=== PATIENT | female | born 1950 | race Hispanic/Latino ===

== ENCOUNTER 2024-04-11 03:50 | Inpatient (IN) | payer MEDICARE ==
[2024-04-11] VITALS (7 sets, daily range): BP systolic 98–112; BP diastolic 54–64; PULSE 77–89; RESP 14–18; TEMP 97.6–98.2; O2SAT 96–100
[~2024-04-11] VITALS: Ht 162.6 cm; Wt 90.7 kg
[~2024-04-11 03:50] MED LIST: AUGMENTIN 500-1 EACH PO; HYDROCET 5-5001 EACH; IPRATROPIU0.2 MG/1 M INH; LISINOPRIL-HCT1 EAC2; PREVACHOL PO; PROPANOLOL; SINGULAIR10 MG PO; TOPROL XL100 MG PO; TRAZADONE; TRAZODONE HCL100 MG PO; XYZAL5 MG; Z.0.XANAX0.5 MG; Z.1.LISINOPRIL-HCT1
[2024-04-11] MEDS: Morphine 4mg INJECTION 4 MG/ML INJ IV ONE ×2 (04:26→07:49)
[2024-04-11] MEDS: SODIUM CHLORIDE 0.9% 1000ML 1,000 ML IV ONE (04:26)
[2024-04-11] MEDS: ONDANSETRON HCL INJ 2MG/ML 2ML 2 MG/ML VIAL IV STA (04:26)
[2024-04-11 04:45] LABS: BASOPHILS % 0.1 % (0.0-1.0); HEMATOCRIT 42.9 % (34.2-44.1); HEMOGLOBIN 13.9 g/dL (12.0-16.0); LYMPHOCYTES # (AUTO) 2.2 (1.0-3.2); LYMPHOCYTES % 15.1 % (18.0-39.1); MEAN CORPUSCULAR HEMOGLOBIN 30.2 pg (28-32); MEAN CORPUSCULAR HGB CONC 32.4 g/dL (31-35); MEAN CORPUSCULAR VOLUME 93.3 fL (81-99); MONOCYTES % 6.8 % (4.4-11.3); NEUTROPHILS # (AUTO) 11.2 (2.1-6.9); NEUTROPHILS % 77.7 % (38.7-80.0); PLATELET COUNT 231 x10e3/uL (140-360); RED CELL DISTRIBUTION WIDTH 12.9 % (11.7-14.4)
[2024-04-11 05:00] LABS: ALBUMIN 3.8 g/dL (3.5-5.0); ALBUMIN/GLOBULIN RATIO 1.2 (0.8-2.0); BILIRUBIN,TOTAL 0.7 mg/dL (0.2-1.2); CALCIUM 10.2 mg/dL (8.4-10.2); CREATININE, SERUM 1.25 mg/dL (0.57-1.11); TOTAL PROTEIN 6.9 g/dL (6.5-8.1)
[2024-04-11] MEDS ORDERED: IOPAMIDOL 370 MG/ML 100 ML INFUS..BTL INJ ONE (05:17)
[2024-04-11] MEDS ORDERED: Morphine 4mg INJECTION 4 MG/ML INJ IV PRN (06:45)
[2024-04-11 06:49] LABS: INR 0.97; PROTHROMBIN TIME 13.4 seconds (11.9-14.5)
[2024-04-11 06:50] LABS: PARTIAL THROMBOPLASTIN TIME 30.6 seconds (23.8-35.5)
[2024-04-11] MEDS: SODIUM CHLORIDE 0.9% 1000ML 1,000 ML IV SCH (07:00)
[2024-04-11] MEDS: METRONIDAZOLE 500MG/NS 100ML 100 ML IV SCH (07:49)
[2024-04-11] MEDS ORDERED: FENTANYL CITRATE/PF 100MCG/2 ML INJ ONE (12:06)
[2024-04-11] MEDS ORDERED: TRAZODONE HCL 50 MG TAB PO PRN (12:45)
[2024-04-11] MEDS ORDERED: BENZONATATE 100 MG CAP PO PRN (12:45)
[2024-04-11] MEDS ORDERED: BUPIVACAINE 0.25% 30ML SDV ONE (13:13)
[2024-04-11] MEDS ORDERED: LIDOCAINE HCL 2% LOCAL INJ 5 ML SDV VIAL INJ ONE (13:52)
[2024-04-11] MEDS ORDERED: ACETAMINOPHEN 1000 MG/100 ML IV ONE (13:52)
[2024-04-11] MEDS ORDERED: ROCURONIUM BROMIDE 10 MG/ML 5ML VIAL IV ONE (13:52)
[2024-04-11] MEDS ORDERED: DEXAMETHASONE SOD PHOS INJ 4 MG/ML SDV ONE (13:52)
[2024-04-11] MEDS ORDERED: SEVOFLURANE INHAL SOLN 250 ML PEN BTL ONE (13:52)
[2024-04-11] MEDS ORDERED: ONDANSETRON HCL INJ 2MG/ML 2ML 2 MG/ML VIAL ONE (13:52)
[2024-04-11] MEDS ORDERED: PROPOFOL IV EMULSION 10 MG/ML 20 ML VIAL ONE (13:52)
[2024-04-11] MEDS ORDERED: SUGAMMADEX SODIUM 200 MG/2 ML VIAL IV ONE (13:52)
[2024-04-11] MEDS ORDERED: SUCCINYLCHOLINE CHLORIDE 20 MG/ML 10ML VIAL ONE (13:52)
[2024-04-11] MEDS ORDERED: ONDANSETRON HCL INJ 2MG/ML 2ML 2 MG/ML VIAL IV PRN (14:45)
[2024-04-11] MEDS: ALBUTEROL/IPRATROPIUM 3 ML NEB ONE (18:44)
[2024-04-11] MEDS: ALBUTEROL/IPRATROPIUM 3 ML NEB NEB PRN (19:43)
[2024-04-11] MEDS: BUDESONIDE 0.5MG/2 ML NEB INH SCH (19:43)
[2024-04-11] MEDS ORDERED: PNEUMOCOCCAL VACCINE POLYVALENT 23 MCG/0.5 ML VIAL IM SCH (19:55)
[2024-04-11] MEDS: METOPROLOL SUCCINATE 25 MG TAB XL PO SCH (20:39)
[2024-04-11] MEDS: ACETAMINOPHEN 1000 MG/100 ML IV PRN (22:35)
[2024-04-12] VITALS (11 sets, daily range): BP systolic 103–130; BP diastolic 54–75; PULSE 71–93; RESP 16–20; TEMP 97.9–98.6; O2SAT 95–100
[2024-04-12] MEDS: HYDROMORPHONE 1MG/1ML INJ IV PRN (03:13)
[2024-04-12] MEDS: ONDANSETRON HCL INJ 2MG/ML 2ML 2 MG/ML VIAL IV PRN (03:34)
[2024-04-12 05:29] LABS: BASOPHILS % 0.2 % (0.0-1.0); HEMATOCRIT 36.8 % (34.2-44.1); HEMOGLOBIN 11.7 g/dL (12.0-16.0); LYMPHOCYTES % 5.4 % (18.0-39.1); MEAN CORPUSCULAR HEMOGLOBIN 30.3 pg (28-32); MEAN CORPUSCULAR HGB CONC 31.8 g/dL (31-35); MEAN CORPUSCULAR VOLUME 95.3 fL (81-99); MONOCYTES # (AUTO) 0.8 (0.2-0.8); NEUTROPHILS # (AUTO) 16.6 (2.1-6.9); NEUTROPHILS % 89.8 % (38.7-80.0); PLATELET COUNT 195 x10e3/uL (140-360); RED BLOOD COUNT 3.86 x10e6/uL (3.6-5.1); RED CELL DISTRIBUTION WIDTH 13.5 % (11.7-14.4); WHITE BLOOD COUNT 18.56 x10e3/uL (4.8-10.8)
[2024-04-12 05:57] LABS: ALBUMIN/GLOBULIN RATIO 1.1 (0.8-2.0); ANION GAP 11.6 mmol/L (8-16); BILIRUBIN,TOTAL 0.8 mg/dL (0.2-1.2); CALCIUM 8.6 mg/dL (8.4-10.2); CREATININE, SERUM 1.09 mg/dL (0.57-1.11); POTASSIUM 3.6 mmol/L (3.5-5.1); TOTAL PROTEIN 5.8 g/dL (6.5-8.1)
[2024-04-12] MEDS ORDERED: METOPROLOL SUCC50 MG PO (08:20)
[2024-04-12] MEDS ORDERED: LISINOPRIL10 MG PO (08:20)
[2024-04-12] MEDS ORDERED: PRAVASTATIN SOD40 MG PO (08:20)
[2024-04-12] MEDS ORDERED: Morphine 2mg Syringe 2 MG/ML SYR IV PRN (14:30)
[2024-04-12] MEDS: ALBUTEROL/IPRATROPIUM 3 ML NEB NEB SCH (16:03)
[2024-04-12] MEDS: HYDROCODONE/APAP 7.5MG-325MG 1 EA TAB PO PRN (17:54)
[2024-04-12] MEDS: METOPROLOL SUCCINATE 25 MG TAB XL PO SCH (20:43)
[2024-04-12] MEDS: DOCUSATE SODIUM 100 MG CAP PO PRN (21:26)
[2024-04-13] VITALS (11 sets, daily range): BP systolic 102–125; BP diastolic 49–88; PULSE 72–93; RESP 16–21; TEMP 97.5–99.2; O2SAT 92–100
[2024-04-13 06:06] LABS: ANION GAP 10.9 mmol/L (8-16); CALCIUM 8.5 mg/dL (8.4-10.2); CREATININE, SERUM 1.01 mg/dL (0.57-1.11); POTASSIUM 3.9 mmol/L (3.5-5.1)
[2024-04-13 08:13] LABS: BASOPHILS % 0.1 % (0.0-1.0); HEMATOCRIT 34.3 % (34.2-44.1); HEMOGLOBIN 10.6 g/dL (12.0-16.0); LYMPHOCYTES # (AUTO) 2.5 (1.0-3.2); LYMPHOCYTES % 17.2 % (18.0-39.1); MEAN CORPUSCULAR HEMOGLOBIN 29.9 pg (28-32); MEAN CORPUSCULAR HGB CONC 30.9 g/dL (31-35); MEAN CORPUSCULAR VOLUME 96.6 fL (81-99); MONOCYTES # (AUTO) 0.8 (0.2-0.8); MONOCYTES % 5.1 % (4.4-11.3); NEUTROPHILS # (AUTO) 11.3 (2.1-6.9); NEUTROPHILS % 77.1 % (38.7-80.0); PLATELET COUNT 194 x10e3/uL (140-360); RED BLOOD COUNT 3.55 x10e6/uL (3.6-5.1); RED CELL DISTRIBUTION WIDTH 13.9 % (11.7-14.4); WHITE BLOOD COUNT 14.62 x10e3/uL (4.8-10.8)
[2024-04-14] VITALS (10 sets, daily range): BP systolic 121–157; BP diastolic 59–81; PULSE 66–89; RESP 18–20; TEMP 97.3–98.6; O2SAT 96–100
[2024-04-14 05:32] LABS: HEMATOCRIT 38.7 % (34.2-44.1); HEMOGLOBIN 11.9 g/dL (12.0-16.0); LYMPHOCYTES # (AUTO) 1.7 (1.0-3.2); LYMPHOCYTES % 15.9 % (18.0-39.1); MEAN CORPUSCULAR HEMOGLOBIN 29.2 pg (28-32); MEAN CORPUSCULAR HGB CONC 30.7 g/dL (31-35); MEAN CORPUSCULAR VOLUME 95.1 fL (81-99); MONOCYTES # (AUTO) 0.8 (0.2-0.8); MONOCYTES % 7.4 % (4.4-11.3); NEUTROPHILS # (AUTO) 8.3 (2.1-6.9); NEUTROPHILS % 76.2 % (38.7-80.0); PLATELET COUNT 227 x10e3/uL (140-360); RED BLOOD COUNT 4.07 x10e6/uL (3.6-5.1); RED CELL DISTRIBUTION WIDTH 13.6 % (11.7-14.4); WHITE BLOOD COUNT 10.92 x10e3/uL (4.8-10.8)
[2024-04-14 05:50] LABS: CALCIUM 8.8 mg/dL (8.4-10.2); CREATININE, SERUM 0.95 mg/dL (0.57-1.11)
[2024-04-14] MEDS: TRAMADOL HCL 50 MG TAB PO PRN (21:29)
[2024-04-15] VITALS: BP 124/71; PULSE 78; RESP 18; TEMP 97.3; O2SAT 96
[2024-04-15] MEDS: SODIUM CHLORIDE 0.9% 250ML 250 ML ONE (00:12)
[2024-04-15 05:44] VITALS: BP 133/70; PULSE 67; RESP 18; TEMP 97.1; O2SAT 100
[2024-04-15 07:31] VITALS: PULSE 66; RESP 18; O2SAT 95
[2024-04-15 08:03] VITALS: BP 142/69; PULSE 62; RESP 19; TEMP 98.2; O2SAT 100
[2024-04-15 08:05] VITALS: BP 142/69; PULSE 62; RESP 19; TEMP 98.2; O2SAT 100
[2024-04-15 10:29] LABS: BASOPHILS % 0.1 % (0.0-1.0); HEMATOCRIT 40.9 % (34.2-44.1); HEMOGLOBIN 12.9 g/dL (12.0-16.0); LYMPHOCYTES # (AUTO) 1.5 (1.0-3.2); LYMPHOCYTES % 16.4 % (18.0-39.1); MEAN CORPUSCULAR HEMOGLOBIN 29.5 pg (28-32); MEAN CORPUSCULAR HGB CONC 31.5 g/dL (31-35); MEAN CORPUSCULAR VOLUME 93.6 fL (81-99); MONOCYTES # (AUTO) 0.7 (0.2-0.8); MONOCYTES % 7.9 % (4.4-11.3); NEUTROPHILS # (AUTO) 6.8 (2.1-6.9); NEUTROPHILS % 75.2 % (38.7-80.0); PLATELET COUNT 245 x10e3/uL (140-360); RED BLOOD COUNT 4.37 x10e6/uL (3.6-5.1); RED CELL DISTRIBUTION WIDTH 13.4 % (11.7-14.4); WHITE BLOOD COUNT 9.09 x10e3/uL (4.8-10.8)
[2024-04-15 10:42] LABS: ANION GAP 12.8 mmol/L (8-16); CALCIUM 9.3 mg/dL (8.4-10.2); POTASSIUM 3.8 mmol/L (3.5-5.1)
[2024-04-15] MEDS ORDERED: ONDANSETRON ODT4 MG PO (11:55)
[2024-04-15] MEDS ORDERED: ULTRAM 50MG50 MG PO (11:55)
[2024-04-15] MEDS ORDERED: LEVOFLOXACIN250 MG PO (11:55)
[2024-04-15] MEDS ORDERED: BENZONATATE100 MG PO (11:55)
[2024-04-15] MEDS ORDERED: FLAGYL375 MG PO (11:55)
[2024-04-15 12:14] VITALS: BP 120/98; PULSE 80; RESP 20; TEMP 98.2; O2SAT 100
[2024-04-15] MEDS ORDERED: ONDANSETRON HCL 4 MG ORAL DISINTEGRATING TAB PO PRN (13:15)
[2024-04-15] MEDS: METRONIDAZOLE 500 MG TAB PO SCH (13:37)
== END 2024-04-15 13:48 | disposition home or self-care (01) | DRG 399 ==
LOC: ER 03:57 → ERHOLD 06:38 → PACU V 13:55 → MED/SURG2 16:30
PROVIDERS: ADMIT Internal Medicine; ATTEND Internal Medicine
PROC: 0W9H4ZZ Drainage of Retroperitoneum, Percutaneous Endoscopic Approach (ICD-10-PCS; 2024-04-11)
PROC: 0DTJ4ZZ Resection of Appendix, Percutaneous Endoscopic Approach (ICD-10-PCS; principal; 2024-04-11 13:25)
DX: K35.33 Acute appendicitis with perforation, localized peritonitis, and gangrene, with abscess (principal); E27.8 Other specified disorders of adrenal gland; J84.10 Pulmonary fibrosis, unspecified; I10 Essential (primary) hypertension; I25.10 Atherosclerotic heart disease of native coronary artery without angina pectoris; I34.1 Nonrheumatic mitral (valve) prolapse; E78.5 Hyperlipidemia, unspecified; G47.00 Insomnia, unspecified; R05.3 Chronic cough; U09.9 Post COVID-19 condition, unspecified
CPT/HCPCS: 36415; 74177; 80048; 80053; 85025; 85610; 85730; 88304; 94640; 94799; 99285; C1766; J0330; J1100; J1171; J2003; J2270; J2405; J2543; J7030; J7050; Q9967

== ENCOUNTER 2024-10-14 10:03 | Emergency (ER) | payer MEDICARE ==
[~2024-10-14] VITALS: Ht 160 cm; Wt 74.4 kg
[~2024-10-14 10:03] MED LIST changes: +BENZONATATE100 MG PO; +FLAGYL375 MG PO; +LEVOFLOXACIN250 MG PO; +LISINOPRIL10 MG PO; +METOPROLOL SUCC50 MG PO; +ONDANSETRON ODT4 MG PO; +PRAVASTATIN SOD40 MG PO; +ULTRAM 50MG50 MG PO
[2024-10-14 10:15] VITALS: TEMP 98.3
[2024-10-14] MEDS: DEXAMETHASONE SOD PHOS 10 MG/1 ML VIAL IM ONE (11:32)
[2024-10-14 11:35] VITALS: PULSE 76; RESP 20; O2SAT 99
[2024-10-14 11:43] LABS: CORONAVIRUS COVID-19 AG NEGATIVE (NEGATIVE); INFLUENZA A AG NEGATIVE (NEGATIVE); INFLUENZA B AG NEGATIVE (NEGATIVE)
[2024-10-14] MEDS: BENZONATATE 100 MG CAP PO ONE (11:46)
[2024-10-14] MEDS ORDERED: MEDROL4 M2 PO (12:15)
== END 2024-10-14 12:34 | disposition home or self-care (01) ==
LOC: ER 10:33
DX: R06.02 Shortness of breath (principal); R05.9 Cough, unspecified; I10 Essential (primary) hypertension; I25.10 Atherosclerotic heart disease of native coronary artery without angina pectoris; E78.5 Hyperlipidemia, unspecified; Z11.52 Encounter for screening for COVID-19; Z87.09 Personal history of other diseases of the respiratory system; Z86.79 Personal history of other diseases of the circulatory system
CPT/HCPCS: 71046; 87428; 93005; 99283; J1100